=== PATIENT | male | born 1950 | race Caucasian/White ===

== ENCOUNTER 2025-01-08 07:58 | Emergency (ER) | payer MEDICARE ==
[~2025-01-08] VITALS: Ht 182.9 cm; Wt 100.6 kg
[2025-01-08 08:00] VITALS: TEMP 98
[2025-01-08] MEDS ORDERED: TROS20TA4 PO (08:15)
[2025-01-08] MEDS ORDERED: HYDR-3965 PO (08:15)
[2025-01-08] MEDS ORDERED: ARIP5TAB53 PO (08:15)
--- NOTE | 2025-01-08 08:16 | Physician Documentation ---
HPI ~ General Chief Complaint: Medication Refill Stated Complaint: MED REQUEST Time Seen by MD: 08:09 History of Present Illness HPI Comments Med refill. No medical complaints. Medication Reconciliation Allergies: Coded Allergies: No Known Allergies (Unverified , 01/08/25) Review of Systems All Other Systems at this time: Reviewed and Negative Physical Exam Physical Exam Vital Signs: RN Vital Signs have been reviewed: Yes, Temperature: 98.0, Source: Temporal, Heart Rate: 119, Respiratory Rate: 16, BP: 141/91, Pulse Oximetry: 95, Weight: 100.600 Oxygen Flow Rate: 0 Physical Exam HEENT: PERRL, moist oral mucosa, EOMI Pulmonary: No respiratory distress MSK: no deformity Skin: w/d/i, no rash Neuro: alert, nonfocal Psych: normal affect Progress Results/Orders Results/Orders Vital Signs 01/08/25 08:00 Temp 98.0 Pulse 119 Resp 16 B/P (MAP) 141/91 Pulse Ox 95 O2 Flow Rate 0 Medical Decision Making Findings Med refill. Differential Dx:Considerations: Include: Adverse circumstances, Medical services unavail., Medication refill, Medication non-compliance Departure Disposition: HOME / SELF CARE / HOMELESS Impression: Primary Impression: General medical exam Condition: Improved Discharge Instructions: Medicine Refill at the Emergency Department Referrals: NO PRIMARY CARE PROVIDER (PCP) Prescriptions Hydrocodone Bit/Acetaminophen 5/325 MG ([place] 5/325 MG) 5 Mg/325 Mg Tablet 1-2 TAB PO Q4-6 hours PRN for pain, #16 TAB Prov: CRISTEL PATEL MD 01/08/25 Aripiprazole (Aripiprazole) 5 Mg Tablet 0.5 TAB PO DAILY for 60 Days, #30 TAB 0 Refills Prov: CRISTEL PATEL MD 01/08/25 Trospium Chloride (Trospium Chloride) 20 Mg Tablet 1 TAB PO QHS for 60 Days, #60 TAB 0 Refills Prov: CRISTEL PATEL MD 01/08/25 Education Educated: Patient, Other Educated regarding: need for follow up Signature Scribe Signature: . Attestation: CRISTEL CORNELL MD Jan 08, 2025 08:16
[2025-01-08 08:24] VITALS: BP 132/89; PULSE 113; RESP 18; O2SAT 95
== END 2025-01-08 08:31 | disposition home or self-care (01) ==
LOC: ER 07:59
DX: Z02.79 Encounter for issue of other medical certificate (principal); Z76.0 Encounter for issue of repeat prescription
CPT/HCPCS: 99281

== ENCOUNTER 2025-01-13 08:42 | Emergency (ER) | payer MEDICARE ==
[~2025-01-13] VITALS: Ht 182.9 cm; Wt 99.8 kg
[~2025-01-13 08:42] MED LIST: ARIP5TAB53 PO; HYDR-3965 PO; TROS20TA4 PO
[2025-01-13 08:48] VITALS: BP 159/96; PULSE 99; RESP 16; O2SAT 97
[2025-01-13] MEDS ORDERED: HYDR-3965 PO (10:50)
--- NOTE | 2025-01-13 10:51 | Physician Documentation ---
HPI ~ General Chief Complaint: Medication Request Stated Complaint: MEDICATION REFILL History of Present Illness HPI Comments 74-year-old gentleman who presents to the emergency department for medication refill. [facility] and several weeks ago and was prescribed 10 mg 325 Stevinson at that time he was given inappropriate quantity and has taken them appropriately during that time I am he is in the process of getting into see a primary care provider and again at the [facility] and has a been unable to get in before needing a refill. Medication Reconciliation Allergies: Coded Allergies: No Known Allergies (Unverified , 01/13/25) Scheduled Aripiprazole (Aripiprazole), 0.5 TAB PO DAILY Trospium Chloride (Trospium Chloride), 1 TAB PO QHS Scheduled PRN Hydrocodone Bit/Acetaminophen 5/325 MG ([place] 5/325 MG), 1-2 TAB PO Q4-6 hours PRN for pain Review of Systems ROS As stated above in the HPI, otherwise all systems are reviewed and negative. Physical Exam Physical Exam Vital Signs: Heart Rate: 99, Respiratory Rate: 16, BP: 159/96, Pulse Oximetry: 97, Weight: 99.800 Oxygen Flow Rate: 0 Physical Exam VITALS: Reviewed and as above. GENERAL: Alert, no apparent distress. HEENT: Normocephalic, atraumatic, PERRL, EOMI, dry mucosa, no erythema RESPIRATORY: Lungs clear, normal breath sounds, no respiratory distress. CHEST: No accessory muscle use, no retractions CV: Regular rate, rhythm, no edema, no murmur, No: JVD GI: Soft, non-tender, bowels sounds present, no rebound, guarding, or rigidity BACK: No CVA tenderness, or swelling MUSCULOSKELETAL No deformities, no edema SKIN: Warm and dry, no rash NEURO: Oriented x4, No motor or sensory deficit PSYCH: Normal mood and affect, no agitation Progress Results/Orders Results/Orders Vital Signs 01/13/25 08:48 Pulse 99 Resp 16 B/P (MAP) 159/96 Pulse Ox 97 O2 Flow Rate 0 Medical Decision Making Findings Medication refill. Confirm patient's need for this prescription in previous prescriptions provided. At length dosing and interval for this prescription. Follow up with his primary care provider in his currently [facility] the [facility] Differential Dx:Considerations: Include: Adverse circumstances, Economic, Psych osocial, Medical services unavail., Medication refill, Medication non- compliance, Other Departure Disposition: 01 HOME / SELF CARE / HOMELESS Impression: Primary Impression: General medical exam Additional Impression: Medication refill Condition: Stable Additional Instructions: Please take this medication as prescribed. Please follow-up with your primary care provider and continue trying to get [facility] to see [facility] so [facility] can [facility] your care. Return to the emergency department if you have any additional needs or any additional concerning symptoms. Referrals: NO PRIMARY CARE PROVIDER (PCP) Prescriptions Hydrocodone Bit/Acetaminophen 5/325 MG ([place] 5/325 MG) 5 Mg/325 Mg Tablet 1-2 TAB PO Q12H for 7 Days, #14 TAB Prov: ROSHAN ROBERT 01/13/25 Education Educated: Patient Educated regarding: need for follow up Signature Scribe Signature: .Scribed for Emergency,Department by RADHA Galeas . 01/13/25 10:51 Attestation: Scribed for Emergency,Department by RADHA Galeas . 01/13/25 10:52 ROSHAN ROBERT Jan 13, 2025 10:51
== END 2025-01-13 11:06 | disposition home or self-care (01) ==
LOC: ER 08:43
DX: R52 Pain, unspecified (principal); Z76.0 Encounter for issue of repeat prescription; Z79.899 Other long term (current) drug therapy
CPT/HCPCS: 99284

== ENCOUNTER 2025-01-21 06:58 | Emergency (ER) | payer MEDICARE ==
[~2025-01-21] VITALS: Ht 182.9 cm; Wt 97.6 kg
--- NOTE | 2025-01-21 07:26 | Physician Documentation ---
HPI ~ General Chief Complaint: Medication Refill Stated Complaint: MED REQ Time Seen by MD: 07:20 OK to notify your PCP?: Yes Source: patient Mode of Arrival: POV Exam Limitations: no limitations History of Present Illness HPI Comments Chief Complaint: Medication refill Caveat: None Independent Historians: Son-in-law History of Present Illness: Patient is a 74-year-old man who suffered from chronic low back pain and normally takes [place] 10 mg q.6 hours. Patient had moved here recently from [facility] to be with his daughter. [facility]. He has run out of his Tipton. Patient's pain is severe 10/10 and nonradiating in the diffuse lower back. No new or acute symptoms. Review of systems: All systems were reviewed and are negative except for what is indicated in the history of present illness. Past Medical History: Chronic low back pain Past Surgical History: Noncontributory Social History: No tobacco use, no alcohol use, no drug use Medications: Reviewed as documented Nursing Notes Allergies: Reviewed as documented in Nursing Notes Medication Reconciliation Allergies: Coded Allergies: No Known Allergies (Unverified , 01/21/25) Scheduled Aripiprazole (Aripiprazole), 0.5 TAB PO DAILY Trospium Chloride (Trospium Chloride), 1 TAB PO QHS Scheduled PRN Hydrocodone Bit/Acetaminophen 5/325 MG ([place] 5/325 MG), 1-2 TAB PO Q4-6 hours PRN for pain Discontinued Medications Hydrocodone Bit/Acetaminophen 5/325 MG ([place] 5/325 MG), 1-2 TAB PO Q12H Discontinued Reason: Auto Discontinued Review of Systems All Other Systems at this time: Reviewed and Negative ROS Patient denies any other acute symptoms other than above. All other systems are negative Physical Exam Physical Exam Vital Signs: RN Vital Signs have been reviewed: Yes, Temperature: 97.5, Source: Temporal, Heart Rate: 91, Respiratory Rate: 20, BP: 155/97, Pulse Oximetry: 97, Weight: 97.600 Pulse Oximetry Reflects: adequate oxygenation Physical Exam General Appearance: Moderate distress HEENT: Normal OP, moist oral mucosa, PERRL, EOMI Neck: supple, normal ROM, trachea midline Pulmonary: No respiratory distress, CTA, BS equal Cardiac: RRR, no murmur, rub or gallop, GI: nondistended, soft, nontender, normal bowel sounds, no guarding, no rebound Back: Decreased range of motion, diffuse lower back tenderness, non-tender, outwardly normal-appearing Neuro: AAOx3, speech is clear, no focal motor weakness Psych: normal affect, good eye contact, no apparent hallucination, normal speech Progress Results/Orders Results/Orders Completed Orders - AMADO VINCENT MD Hydrocodone/Apap 10/325 ([place] 10/325mg (01/21/25 07:25) Medications Received in ER Medications (Trade) Dose Ordered Sig/Arnie Route PRN Reason Start Time Stop Time Status Last Admin Dose Admin ([place] 10/325mg tab) 1 tab ONCE ONCE PO 01/21/25 07:25 01/21/25 07:26 DC 01/21/25 07:35 1 TAB Vital Signs 01/21/25 01/21/25 01/21/25 07:03 07:35 07:37 Temp 97.5 97.5 Pulse 91 87 Resp 20 18 18 B/P (MAP) 155/97 187/100 Pulse Ox 97 95 Medical Decision Making Findings Differential diagnosis includes but is not limited to: Chronic low back pain, medication refill Emergency department course/medical decision-making: Patient is a 74-year-old man who has been on T[place] 10 mg q.6 hours for a very long time. For some reason he has run out of his medication and he is in need of a refill. Patient has not been able to get into the [facility] for an appointment. Patient will be prescribed a limited number of [place] 10 mg, 10. Until he can get in to see his doctor at the [facility] to refill his chronic pain medication. There was no evidence of a medical or surgical emergency. Patient is stable for discharge. Patient and family were instructed that future refills of medications need to be through his primary care doctor. Departure Time of Disposition: 07:24 Disposition: 01 HOME / SELF CARE / HOMELESS Impression: Primary Impression: Medication refill Additional Impression: Chronic low back pain Qualified Codes: M54.50 - Low back pain, unspecified; G89.29 - Other chronic pain Condition: Stable Discharge Instructions: Medicine Refill at the Emergency Department Additional Instructions: YOU MUST GO TO [facility] TODAY TO GET REFILL OF YOUR PAIN MEDICATION. LET THE DOCTOR AT THE [facility] KNOW THAT I HAVE GIVEN YOU A PRESCRIPTION FOR 10MG NORCO, #10 TABLETS. Prescriptions Hydrocodone Bit/Acetaminophen (Hydrocodone-Apap 10-325 Tablet) 10mg/325mg Tablet 1 TAB PO TID PRN PRN for pain, #10 TAB Prov: AMADO VINCENT MD 01/21/25 Education Educated: Patient, Family Educated regarding: diagnosis, treatment Signature Scribe Signature: NO SCRIBE Attestation: NO SCRIBE AMADO VINCENT MD Jan 21, 2025 07:26
[2025-01-21] MEDS: HYDROcodone/acetaminophen 10/325mg tab PO ONE (07:35)
[2025-01-21 07:37] VITALS: BP 187/100; PULSE 87; RESP 18; TEMP 97.5; O2SAT 95
[2025-01-21] MEDS ORDERED: HYDR-3973 PO (10:28)
== END 2025-01-21 07:41 | disposition home or self-care (01) ==
LOC: ER 06:58
DX: G89.29 Other chronic pain (principal); M54.50 Low back pain, unspecified; Z76.0 Encounter for issue of repeat prescription
CPT/HCPCS: 99284